=== PATIENT | female | born 1975 | race Caucasian/White ===

== ENCOUNTER 2020-08-03 06:34 | Day surgery (SDC) | payer MEDICAID, SELFPAY ==
[~2020-08-03] VITALS: Ht 157.5 cm; Wt 109.3 kg
[2020-08-03] MEDS ORDERED: fentaNYL CITRATE/PF 100 MCG/2 ML AMP ONE ×2 (07:00→07:06)
[2020-08-03] MEDS ORDERED: SIMETHICONE 80 MG TAB.CHEW ONE (07:00)
[2020-08-03] MEDS ORDERED: MIDAZOLAM HCL 2 MG/2 ML VIAL (VERSED) ONE (07:00)
[2020-08-03] MEDS ORDERED: MIDAZOLAM HCL 5 MG/5 ML VIAL ONE (07:06)
[2020-08-03] MEDS ORDERED: SIMETHICONE 40 MG/0.6 ML ML ONE (07:06)
[2020-08-03 07:21] LABS: HCG,QUAL RESULT NEGATIVE (NEGATIVE)
[2020-08-03 09:18] VITALS: BP_SYST 115
== END 2020-08-03 08:38 | disposition home or self-care (01) ==
LOC: SDS 06:34 → SMU 06:35 → SDS 08:38
PROVIDERS: ATTEND Internal Medicine
DX: K59.01 Slow transit constipation (principal); I10 Essential (primary) hypertension; E78.5 Hyperlipidemia, unspecified; Z90.49 Acquired absence of other specified parts of digestive tract; Z20.828 Contact with and (suspected) exposure to other viral communicable diseases
CPT/HCPCS: 84703; 45378; 99152; G0378; J2250; J3465; J3010; U0003